=== PATIENT | female | born 1970 | race Caucasian/White ===

== ENCOUNTER 2020-06-19 09:00 | Outpatient (CLI) | payer MEDICAID, SELFPAY ==
[~2020-06-19] VITALS: Ht 165.1 cm; Wt 72.6 kg
== END 2020-06-19 16:00 | disposition home or self-care (01) ==
LOC: SLB 09:00 → EDSTATUS 06-23 08:00
PROVIDERS: ATTEND Internal Medicine Gastroenterology
DX: Z01.812 Encounter for preprocedural laboratory examination (principal); K62.5 Hemorrhage of anus and rectum; Z20.822 Contact with and (suspected) exposure to COVID-19
CPT/HCPCS: U0003

== ENCOUNTER 2020-09-08 07:53 | Day surgery (SDC) | payer MEDICAID, SELFPAY ==
[~2020-09-08] VITALS: Ht 165.1 cm; Wt 70.3 kg
[2020-09-08] MEDS ORDERED: MEPERIDINE 100 MG INJ. 100 MG/ML VIAL ONE (10:26)
[2020-09-08] MEDS ORDERED: MIDAZOLAM HCL 5 MG/5 ML VIAL ONE (10:26)
[2020-09-08 15:04] VITALS: BP_SYST 113
== END 2020-09-08 12:20 | disposition home or self-care (01) ==
LOC: SDS 07:53 → SMU 07:53 → SDS 12:20
PROVIDERS: ATTEND Internal Medicine Gastroenterology
DX: K62.5 Hemorrhage of anus and rectum (principal); D12.0 Benign neoplasm of cecum; D12.4 Benign neoplasm of descending colon; D12.5 Benign neoplasm of sigmoid colon; D12.3 Benign neoplasm of transverse colon; K64.8 Other hemorrhoids; A63.0 Anogenital (venereal) warts; I10 Essential (primary) hypertension; E11.9 Type 2 diabetes mellitus without complications; E78.00 Pure hypercholesterolemia, unspecified; Z79.899 Other long term (current) drug therapy
CPT/HCPCS: 36415; 45380; 45381; 45385; 82962; 87426; 88305; 99152; 99153; G0378; J2175; J2250; U0003

== ENCOUNTER 2021-10-30 06:00 | Day surgery (SDC) | payer MEDICAID ==
[~2021-10-30] VITALS: Ht 165.1 cm; Wt 73.5 kg
[2021-10-30] MEDS ORDERED: MEPERIDINE 100 MG INJ. 100 MG/ML VIAL ONE (07:58)
[2021-10-30] MEDS: MIDAZOLAM HCL 5 MG/5 ML VIAL ONE ×4 (08:02→08:14)
[2021-10-30 13:05] VITALS: BP_SYST 103
== END 2021-10-30 09:45 | disposition home or self-care (01) ==
LOC: SDS 06:00 → SMU 06:00 → SDS 09:45
PROVIDERS: ATTEND Internal Medicine Gastroenterology
DX: Z09 Encounter for follow-up examination after completed treatment for conditions other than malignant neoplasm (principal); D12.2 Benign neoplasm of ascending colon; K64.8 Other hemorrhoids; A63.0 Anogenital (venereal) warts; Z86.010 Personal history of colon polyps; E11.9 Type 2 diabetes mellitus without complications; E78.00 Pure hypercholesterolemia, unspecified; Z79.899 Other long term (current) drug therapy; Z20.822 Contact with and (suspected) exposure to COVID-19
CPT/HCPCS: 36415 ×2; 45380; 45385; 87426; 82962; 88305; 99152; 99153; U0003; G0378; J2250; J2175